=== PATIENT | male | born 1955 | race Caucasian/White ===

== ENCOUNTER 2022-08-16 10:24 | Outpatient (CLI) | payer MEDICARE, BC, SELFPAY ==
[2022-08-16 17:35] LABS: Chloride* 107 mmol/L (96-114); Potassium* 4.7 mmol/L (3.6-5.1); Sodium* 139 mmol/L (135-149)
[2022-08-16 17:38] LABS: Blood Urea Nitrogen* 26 mg/dL (7-30); Creatinine* 1.4 mg/dL (0.5-1.5); Estimated Glomerular Filt Rate 54 ml/min
[2022-08-16 18:12] LABS: Calcium* 10.2 mg/dL (8.4-10.6); Carbon Dioxide* 24 mmol/L (20-32); Cholesterol* 158 mg/dL (90-199); Glucose* 95 mg/dL (60-115); HDL Cholesterol* 35 mg/dL (>=40); LDL Cholesterol Calculated 103 mg/dL (<100); Triglycerides* 99 mg/dL (40-149)
[2022-08-17 06:15] LABS: PSA Screen* 3.03 ng/mL (0.10-4.00)
== END 2022-08-16 10:25 | disposition home or self-care (01) ==
PROVIDERS: PCP Family Medicine; Visit Provider Family Medicine
DX: Z00.00 Encounter for general adult medical examination without abnormal findings (principal); E78.5 Hyperlipidemia, unspecified; I10 Essential (primary) hypertension; Z12.5 Encounter for screening for malignant neoplasm of prostate; Z13.0 Encounter for screening for diseases of the blood and blood-forming organs and certain disorders involving the immune mechanism
CPT/HCPCS: 80048; 80061; 84153

== ENCOUNTER 2023-01-13 13:46 | Outpatient (CLI) | payer MEDICARE, BC, SELFPAY | END 2023-01-13 13:47 | disposition home or self-care (01) | LOC: LKVREF 13:47 | PROVIDERS: PCP Family Medicine; Visit Provider Nurse Practitioner Family | DX: R79.89 Other specified abnormal findings of blood chemistry (principal) | CPT/HCPCS: 80048 ==

== ENCOUNTER 2023-04-25 15:48 | Outpatient (CLI) | payer MEDICARE, BC, SELFPAY ==
[2023-04-25 18:02] LABS: SARS PCR* Negative SARS-CoV-2 (Negative)
== END 2023-04-25 15:49 | disposition home or self-care (01) ==
LOC: LONREF 15:48
PROVIDERS: PCP Family Medicine; Visit Provider Family Medicine
DX: R05.9 Cough, unspecified (principal); Z20.822 Contact with and (suspected) exposure to COVID-19
CPT/HCPCS: 80076; 82607; 84134; 87635

== ENCOUNTER 2024-05-30 11:43 | Outpatient (CLI) | payer MEDICARE, BC, SELFPAY | END 2024-05-30 11:44 | disposition home or self-care (01) | PROVIDERS: PCP Family Medicine; Visit Provider Family Medicine | DX: I10 Essential (primary) hypertension (principal); R53.83 Other fatigue; R97.20 Elevated prostate specific antigen [PSA]; Z13.29 Encounter for screening for other suspected endocrine disorder | CPT/HCPCS: 84153; 84443 ==

== ENCOUNTER 2024-06-07 13:43 | Outpatient (CLI) | payer MEDICARE, BC, SELFPAY ==
[2024-06-07 15:02] VITALS: BP 141/73; PULSE 91
--- NOTE | 2024-06-07 16:18 | W.PM.STED ---
Stress Test Note Date Date Seen: 06/07/24 Date of test: 06/07/24 Providers Primary care provider: Onur Reed Stress test physician: Radha Qureshi Stress Test Note Stress test ordered: Stress Echo Indication for test: Dyspnea Stress test medicine: None Results discussion: Resting EKG: Sinus rhythm, 77 beats per minute Resting blood pressure: 120/74 Stress test: This patient is consented on stress test ordered. Patient proceeded to exercise on the treadmill following standard Jose Elias protocol. Patient was able to exercise to 12 minutes, test being terminated due to reaching exercise capacity and some shortness of breath. This was equivalent to 12.1 Mets. He had a maximum heart rate of 142 beats per minute which was 111% of a calculated target heart rate of 127. Had a maximal blood pressure of 160 over 90 during exercise. Rate pressure product was 22,720. Patient had no diagnostic ischemic changes, no arrhythmia, no chest pain during this stress test. Await echo images to couple this for a full formal diagnostic. Impression: Subjectively negative, objectively negative EKG portion of this stress echo. Follow up suggested: Patient is discharged in stable condition. He will wait full formal report with Cardiology reading of the echo from his primary provider.
== END 2024-06-07 13:44 | disposition home or self-care (01) ==
LOC: STRESS 13:45
PROVIDERS: PCP Family Medicine; Visit Provider Family Medicine
DX: R06.09 Other forms of dyspnea (principal)
CPT/HCPCS: 93016; 93325; 93351

== ENCOUNTER 2024-11-22 11:10 | Outpatient (CLI) | payer MEDICARE, BC, SELFPAY | END 2024-11-22 11:11 | disposition home or self-care (01) | LOC: NFLDREF 11-25 08:03 | PROVIDERS: PCP Family Medicine; Referring Provider Family Medicine; Visit Provider Family Medicine | DX: R97.20 Elevated prostate specific antigen [PSA] (principal); Z12.5 Encounter for screening for malignant neoplasm of prostate | CPT/HCPCS: G0103 ==

== ENCOUNTER 2025-07-16 11:53 | Outpatient (CLI) | payer MEDICARE, BC, SELFPAY | END 2025-07-16 11:54 | disposition home or self-care (01) | LOC: NFLDREF 07-18 13:44 | PROVIDERS: PCP Family Medicine; Referring Provider Family Medicine; Visit Provider Family Medicine | DX: I10 Essential (primary) hypertension (principal); E78.5 Hyperlipidemia, unspecified; R97.20 Elevated prostate specific antigen [PSA] | CPT/HCPCS: 80053; 80061; 84153 ==